=== PATIENT | female | born 1995 | race Caucasian/White ===

== ENCOUNTER 2016-05-04 17:32 | Emergency (ER) | payer MEDICAID ==
[2016-05-04 18:02] VITALS: TEMP 98.3; BMI 31.6
[2016-05-04 18:22] LABS: LEUKOCYTES/URINE 1+ (NEGATIVE); NITRITE/URINE NEG (NEGATIVE); URINE OCCULT BLOOD NEG (NEG/TRACE); WBC/URINE 20-30 (0-5)
[2016-05-04 18:23] LABS: AUTOMATED BASOPHIL 1.6 % (0-2); AUTOMATED EOSINOPHIL 0.3 % (0-5); AUTOMATED LYMPH 12.7 % (17-44); AUTOMATED MONOCYTE 11.6 % (3-10); AUTOMATED NEUTROPHIL 73.8 % (45-76); MPV 8.7 fL (7.4-10.4)
[2016-05-04 18:39] LABS: BLOOD UREA NITROGEN 8 MG/DL (7-17); CALCIUM 10.1 MG/DL (8.4-10.2); CALCULATED OSMOLALITY 261 MOs/Kg (270-290); CHLORIDE 97 mEq/L (98-107); GLUCOSE 108 MG/DL (70-99); SODIUM LEVEL 136 mEq/L (137-146)
[2016-05-04 20:25] VITALS: BP 106/74
[2016-05-04] MEDS ORDERED: NS 1,000 ML IV ONE (20:35)
--- NOTE | 2016-05-04 20:56 | EDPRACDOC ---
- General Information Chief Complaint: Back Pain Stated Complaint: LOW BACK PAIN - 3 MONTHS Time Seen by Provider: 05/04/16 20:34 Information Source: Patient Mode Of Arrival: Car Home Medications: Home Medications Nitrofurantoin [Macrobid] 100 mg PO BID #14 cap 05/04/16 Allergies/Adverse Reactions: Allergies Allergy/AdvReac Type Severity Reaction Status Date / Time No Known Allergies Allergy Verified 05/04/16 17:59 - History of Present Illness Onset: yesterday Pain Location: Reports: Periumbilical Pain Context: Reports: Spontaneous Pain Severity: Mild Pain Quality: Reports: Knife-like Pain Radiation: Reports: No Radiation Last Menstrual Period: January 30, 2016 : Yes (3 months) Adult Abdominal History: Denies: Abdominal Surgery Female Abdominal History: Denies: Abdominal Surgery Modifying Factors: improves with: Nothing Female Associated Signs & Symptoms: Reports: Nausea, Vomiting Oral Intake: Decreased Urinary Output: Normal ED Past Medical History - History Reviewed Yes Nurses notes reviewed and agree except as marked - Patient Medical History Psychological History: Denies: Depression Systemic History: Denies: Cancer Surgical History: Denies: Hysterectomy - Social Medical History Smoking Status: Never smoker EDM Review of Systems - Review of Systems ROS Negative Except as Marked: Yes All systems reviewed and were negative except as marked - Physical Exam Constitutional: Alert (Awake), No apparent distress Oriented to: Time, Person, Place Last recorded Vital Signs: Last Vital Signs Temp 98.3 F 05/04/16 20:23 Pulse 97 05/04/16 20:23 Resp 20 05/04/16 20:23 BP 106/74 05/04/16 20:23 Pulse Ox 96 05/04/16 20:23 Oxygen Pulse Oxygen Saturation 96 O2 Device Oxygen Flow Rate Fraction of Inspired Oxygen ( FIO2) - HEENT Head: Normal ( normocephalic) Eye Exam: Normal (PERRL, EOMI, Sclera white) Oropharynx: Normal (Pharynx:Moist without exudate,Gums-no swelling) ENT EAC: Normal TMJ: Normal Nose: No Symptoms Reported (septum midline) Neck: Normal (FROM, trachea at midline) - Respiratory/Cardiovascular Respiratory: Normal - CTA (BBS clear to auscultation without adventitious sounds ) Cardiovascular: Normal (RRR without murmur, gallop or rub) - GI Auscultation: Normal (NABS) Palpation: Normal (Soft,No rebound or guarding, non distended) Tenderness: Non tender Ceja's Sign: Negative - Musculoskeletal Back: Normal (Non-Tender) Extremities: Normal (Normal tone, Pulses 2+ No cyanosis or edema, FROM) - Integumentary Skin: Normal, Warm, Dry Lymphatics: Normal (no adenopathy) - Neurologic Memory Impaired: Normal Motor Function: Normal (Normal tone, Pulses 2+ No cyanosis or edema, FROM) Cranial Nerve: Normal (CN II-X11 intact sensation, strength 5/5) Cerebellar: Normal Mood Description: Normal Perception: Normal - Results 05/04/16 18:05 05/04/16 18:05 WBC 6.7 xk/uL (3.8-10.8) 05/04/16 18:05 RBC 5.14 xM/uL (4.20-5.40) 05/04/16 18:05 Hgb 15.1 g/dL (12.0-16.0) 05/04/16 18:05 Hct 42.9 % (36-47) 05/04/16 18:05 MCV 83 fL (81-99) 05/04/16 18:05 MCH 29.4 pg (27-32) 05/04/16 18:05 MCHC 35.3 g/dl (33-36) 05/04/16 18:05 RDW 12.9 % (11.5-14.5) 05/04/16 18:05 Plt Count 119 xk/uL (130-400) L 05/04/16 18:05 MPV 8.7 fL (7.4-10.4) 05/04/16 18:05 Neut % (Auto) 73.8 % (45-76) 05/04/16 18:05 Lymph % (Auto) 12.7 % (17-44) L 05/04/16 18:05 [place] % (Auto) 11.6 % (3-10) H 05/04/16 18:05 Eos % (Auto) 0.3 % (0-5) 05/04/16 18:05 Baso % (Auto) 1.6 % (0-2) 05/04/16 18:05 Absolute Neuts (auto) 4.89 xk/uL (1.7-8.2) 05/04/16 18:05 Absolute Lymphs (auto) 0.80 xk/uL (0.65-4.75) 05/04/16 18:05 Sodium 136 mEq/L (137-146) L 05/04/16 18:05 Potassium 3.7 mEq/L (3.5-5.1) 05/04/16 18:05 Chloride 97 mEq/L (98-107) L 05/04/16 18:05 Carbon Dioxide 23 mMOL/L (22-33) 05/04/16 18:05 Anion Gap 20 mEq/L (8-16) H 05/04/16 18:05 BUN 8 MG/DL (7-17) 05/04/16 18:05 Creatinine 0.40 MG/DL (0.52-1.04) L 05/04/16 18:05 Estimated GFR (MDRD) > 60 mL/min (>=60) 05/04/16 18:05 Glucose 108 MG/DL (70-99) H 05/04/16 18:05 Calculated Osmolality 261 MOs/Kg (270-290) L 05/04/16 18:05 Calcium 10.1 MG/DL (8.4-10.2) 05/04/16 18:05 Total Bilirubin 0.8 MG/DL (0.2-1.3) 05/04/16 18:05 AST 47 IU/L (14-36) H 05/04/16 18:05 ALT 74 IU/L (9-52) H 05/04/16 18:05 Alkaline Phosphatase 82 IU/L (38-126) 05/04/16 18:05 Total Protein 8.0 G/DL (6.3-8.2) 05/04/16 18:05 Albumin 4.7 G/DL (3.5-5.0) 05/04/16 18:05 Beta HCG, Quant > 48280.0 mIU/mL (<5) 05/04/16 18:55 Urine Color Dark yellow 05/04/16 18:00 Urine Clarity Cldy 05/04/16 18:00 Urine pH 5.0 (5.0-8.0) 05/04/16 18:00 Ur Specific [place] 1.020 (1.003-1.035) 05/04/16 18:00 Urine Protein Trace (NEG/TRACE) 05/04/16 18:00 Urine Glucose (UA) Neg (NEGATIVE) 05/04/16 18:00 Urine Ketones Neg (NEGATIVE) 05/04/16 18:00 Urine Occult Blood Neg (NEG/TRACE) 05/04/16 18:00 Urine Nitrite Neg (NEGATIVE) 05/04/16 18:00 Urine Bilirubin Neg (NEGATIVE) 05/04/16 18:00 Urine Urobilinogen 0.2 MG/DL (0-1) 05/04/16 18:00 Ur Leukocyte Esterase 1+ (NEGATIVE) H 05/04/16 18:00 Urine RBC 5-10 (0-5) H 05/04/16 18:00 Urine WBC 20-30 (0-5) H 05/04/16 18:00 Ur Epithelial Cells 4+ 05/04/16 18:00 Urine Bacteria 2+ (NEG/FEW) H 05/04/16 18:00 Urine Mucus Large (NEG/OCC) 05/04/16 18:00 Lab Results 05/04/16 05/04/16 05/04/16 18:55 18:05 18:05 WBC 6.7 RBC 5.14 Hgb 15.1 Hct 42.9 MCV 83 MCH 29.4 MCHC 35.3 RDW 12.9 Plt Count 119 L MPV 8.7 Neut % (Auto) 73.8 Lymph % (Auto) 12.7 L [place] % (Auto) 11.6 H Eos % (Auto) 0.3 Baso % (Auto) 1.6 Absolute Neuts (auto) 4.89 Absolute Lymphs (auto) 0.80 Sodium 136 L Potassium 3.7 Chloride 97 L Carbon Dioxide 23 Anion Gap 20 H BUN 8 Creatinine 0.40 L Estimated GFR (MDRD) > 60 Glucose 108 H Calculated Osmolality 261 L Calcium 10.1 Total Bilirubin 0.8 AST 47 H ALT 74 H Alkaline Phosphatase 82 Total Protein 8.0 Albumin 4.7 Beta HCG, Quant > 97801.0 Urine Color Urine Clarity Urine pH Ur Specific [place] Urine Protein Urine Glucose (UA) Urine Ketones Urine Occult Blood Urine Nitrite Urine Bilirubin Urine Urobilinogen Ur Leukocyte Esterase Urine RBC Urine WBC Ur Epithelial Cells Urine Bacteria Urine Mucus 05/04/16 18:00 WBC RBC Hgb Hct MCV MCH MCHC RDW Plt Count MPV Neut % (Auto) Lymph % (Auto) [place] % (Auto) Eos % (Auto) Baso % (Auto) Absolute Neuts (auto) Absolute Lymphs (auto) Sodium Potassium Chloride Carbon Dioxide Anion Gap BUN Creatinine Estimated GFR (MDRD) Glucose Calculated Osmolality Calcium Total Bilirubin AST ALT Alkaline Phosphatase Total Protein Albumin Beta HCG, Quant Urine Color Dark yellow Urine Clarity Cldy Urine pH 5.0 Ur Specific [place] 1.020 Urine Protein Trace Urine Glucose (UA) Neg Urine Ketones Neg Urine Occult Blood Neg Urine Nitrite Neg Urine Bilirubin Neg Urine Urobilinogen 0.2 Ur Leukocyte Esterase 1+ H Urine RBC 5-10 H Urine WBC 20-30 H Ur Epithelial Cells 4+ Urine Bacteria 2+ H Urine Mucus Large Decision Time to Discharge: 21:45 - Departure Yes I personally saw and evaluated the patient. Disposition: Home Condition: Good Final Diagnosis: UTI, Instructions: Urinary Tract Infection in Women (ED) Education/Counseling Given To: Patient, Family Member Education/Counseling Given Regarding: Diagnosis, Treatment, Prognosis Referrals: Ember Diaz PA [Primary Care Provider] - One Week Prescriptions: Nitrofurantoin [Macrobid] 100 mg PO BID #14 cap
--- NOTE | 2016-05-04 21:43 | DIRPT ---
CLINICAL DATA: Acute onset of back pain. Initial encounter. EXAM: LIMITED OBSTETRIC ULTRASOUND FINDINGS: Number of Fetuses: 1 Heart Rate: 178 bpm Movement: Yes Presentation: Cephalic Placental Location: Posterior fundal Previa: No Amniotic Fluid (Subjective): Within normal limits. BPD: 2.5 cm 14w 3d MATERNAL FINDINGS: Cervix: Appears closed, measuring 2.7 cm in length. Uterus/Adnexae: No abnormality visualized. A 3.4 cm left ovarian cyst is anechoic and likely physiologic in nature. IMPRESSION: Single live intrauterine noted, with a biparietal diameter of 2.5 cm, corresponding to a gestational age of 14 weeks 3 days. This matches the gestational age of 13 weeks 4 days by LMP, reflecting an estimated date of delivery of November 05, 2016. The cervix remains closed. No evidence of placenta previa. This exam is performed on an emergent basis and does not comprehensively evaluate size, dating, or anatomy; follow-up complete OB US should be considered if further assessment is warranted. Electronically Signed By: Pako Sena M.D. On: 05/04/2016 21:40
[2016-05-04 22:24] VITALS: PULSE 101
== END 2016-05-04 22:21 | disposition home or self-care (01) ==
LOC: ED 17:32
DX: O23.40 Unspecified infection of urinary tract in pregnancy, unspecified trimester (principal); Z3A.00 Weeks of gestation of pregnancy not specified
CPT/HCPCS: 36415; 76815; 80053; 81001; 84702; 85025; 87040; 87086; 96360; 99283